=== PATIENT | female | born 1940 | race Hispanic/Latino ===

== ENCOUNTER 2017-04-04 09:46 | Outpatient (CLI) | payer MEDICARE ==
[2017-04-04 10:36] LABS: Blood Urea Nitrogen 23 mg/dL (7-17)
--- NOTE | 2017-04-04 13:41 | Cat Scan Report ---
FINAL REPORT PROCEDURE: CT ANGIO NECK TECHNIQUE: Consent was obtained. IV contrast was administered and axial sections and post processed reformatted images were viewed through the cervical arterial vasculature. HISTORY: OCCLUSION AND STENOSIS OF LEFT CAROTID ARTERY COMPARISON: No prior studies are available for comparison. FINDINGS: Degenerative changes of the cervical spine are present to include foraminal stenosis at C4/C5 through C6/C7. Grade 1 anterior listhesis of the C4 on C5 vertebral body is present as well. Median sternotomy is noted. Stenosis which appears hemodynamically significant both due to hard and soft plaque greater than 50 percent of the proximal most 6.5 millimeters of the left vertebral artery is seen. The right vertebral artery is mildly dominant. There is no evident fibromuscular dysplasia. Approximate 50 percent stenosis of the left vertebral artery at the skullbase due to calcific plaque is present. Right suboccipital craniectomy is noted. Atrophy of the tongue worst at its right aspect as well as of the right submandibular gland is seen. Hypodensity possibly a epiglottis/vallecular cyst 1.1 x 1 centimeters is seen on the left. Prior right carotid endarterectomy is suspected. There is no high-grade stenosis of the right common, internal or external carotid artery. Likewise, there is mild calcific atherosclerosis of the left carotid system most conspicuously at the bulb and proximal most ICA. There is no visualized high-grade stenosis. Normal distal flow is seen. There is no evident pseudoaneurysm or AV fistula. IMPRESSION: Suspect sub centimeter in length hemodynamically significant stenosis of the origin of the left vertebral artery. Conventional catheter angiography would be of benefit with possible intervention. Approximate 50 percent stenosis of the left vertebral artery at the skullbase. Prior right carotid endarterectomy. Atherosclerosis without suspected significant stenosis of the right or left common/internal carotid arteries. Prior median sternotomy. Right suboccipital craniectomy. Atrophy of the tongue worst on the right as well as partially of the right submandibular gland. Bony peripheral stenosis of the cervical spine extending from C4/C5 through C6/C7. Grade 1 anterior listhesis of the C4 on C5 vertebral segment. Question 1.1 centimeter left epiglottis/vallecular cyst. Correlate clinically.
== END 2017-04-04 09:47 | disposition home or self-care (01) ==
LOC: CT 09:46
PROVIDERS: ATTEND Surgery Vascular Surgery
DX: I65.22 Occlusion and stenosis of left carotid artery (principal); K14.8 Other diseases of tongue; M47.892 Other spondylosis, cervical region; Z98.890 Other specified postprocedural states
CPT/HCPCS: 36415; 70498; 82565; 84520; Q9967